=== PATIENT | male | born 1985 ===

== ENCOUNTER 2018-03-17 12:16 | Emergency (ER) | payer OTHER ==
[2018-03-17 12:27] VITALS: RESP 18; TEMP 98.8; BMI 42.3
--- NOTE | 2018-03-17 13:05 | ED PDOC ---
Arrival/HPI - General Chief Complaint: Back Pain Time Seen by Provider: 03/17/18 12:36 Historian: Patient - History of Present Illness Narrative History of Present Illness (Text): 03/17/18 33 yo male w/o significant PMHx come in for evaluation of Left sided lower back pain radiating down to Left thigh and lower leg gradually developed for past 2 months. Pt reports, pain is intermittent, worse for past week. Describes pain as aching, worse with movement. Admits , similar sx in past. Also request evaluation of cold sx associated with nasal congestion, dry cough for past few days. Otherwise, pt denies high fever, chills, headache, dizziness, drooling, dysphagia, dyspnea, CP, SOB, wheezing, abd. pain, N/V/D, UTI sx, saddle anesthesia, incontinence, denies weakness, sensory or vascular deficits to left leg, denies Left calf pain. Ambulate to ED for evaluation, not in any apparent distress. Past Medical History - Provider Review Nursing Documentation Reviewed: Yes - Travel History Have you recently traveled outside [place] w/in the past 3 mons?: No - Past History Past History: No Previous - Infectious Disease Hx of Infectious Diseases: None - Tetanus Immunization Tetanus Immunization: Unknown - Psychiatric Hx Substance Use: No - Anesthesia Hx Anesthesia: No Family/Social History - Physician Review Nursing Documentation Reviewed: Yes Family/Social History: No Known Family HX Smoking Status: Never Smoked Hx Alcohol Use: No Hx Substance Use: No Allergies/Home Meds Allergies/Adverse Reactions: Allergies dexamethasone [From Decadron] Allergy (Intermediate, Verified 12/17/17 10:31) ITCHING Home Medications: Home Meds Medication Instructions Recorded Confirmed Theraflu Expressmax Day Caplet 1 cap PO PRN PRN 12/17/17 12/17/17 Review of Systems - Physician Review All systems were reviewed & negative as marked: Yes - Review of Systems Constitutional: Normal. absent: Fevers Eyes: Normal ENT: Other (nasal congestion) Respiratory: Cough. absent: SOB, Sputum, Wheezing Cardiovascular: Normal. absent: Chest Pain, Palpitations Gastrointestinal: Normal. absent: Abdominal Pain, Diarrhea, Vomiting Genitourinary Male: Normal. absent: Dysuria, Frequency Musculoskeletal: Back Pain Skin: Normal. absent: Rash Neurological: Normal. absent: Headache, Focal Weakness Endocrine: Normal Hemo/Lymphatic: Normal Psychiatric: Normal Physical Exam Vital Signs Reviewed: Yes Vital Signs Temp Pulse Resp BP Pulse Ox 03/17/18 14:06 89 18 142/79 97 03/17/18 12:25 98.8 F 101 H 18 159/96 H 95 Temperature: Afebrile Blood Pressure: Normal Pulse: Regular Respiratory Rate: Normal Appearance: Positive for: Well-Appearing, Non-Toxic, Comfortable Pain Distress: None Mental Status: Positive for: Alert and Oriented X 3 - Systems Exam Head: Present: Normocephalic Conjunctiva: Present: Normal Mouth: Present: Moist Mucous Membranes Neck: Present: Normal Range of Motion, Trachea Midline. No: MIDLINE TENDERNESS , Paraspinal Tenderness Respiratory/Chest: Present: Clear to Auscultation, Good Air Exchange. No: Respiratory Distress, Accessory Muscle Use Cardiovascular: Present: Regular Rate and Rhythm, Normal S1, S2. No: Murmurs Abdomen: No: Tenderness, Distention, Peritoneal Signs, Rebound, Guarding Back: No: CVA Tenderness Upper Extremity: Present: Normal ROM. No: Edema Lower Extremity: Present: NORMAL PULSES, Normal ROM. No: Edema, CALF TENDERNESS , Swelling, Deformity Neurological: Present: GCS=15, Speech Normal Skin: Present: Warm, Dry, Normal Color. No: Rashes Psychiatric: Present: Alert, Oriented x 3, Normal Insight, Normal Concentration Medical Decision Making ED Course and Treatment: 03/17/18 13:05 On re-evaluation, pt is afebrile, hemodynamicaly stable. Non-toxic, ambulatory in ED with stable gait. PulseOx 95% rA ENT: no acute findings neck: Supple, (-) JVD Lungs: CTA B/L, BS equal B/L CVS: (+)S1S2, reg. Abd: benign. Neurological intact. L-spine xray review and appeas normal. Pt has clinical findings c/w lumbar radiculopathy, left. Upper respiratory infection. Pt advised. ref. to f/u with PMD in 2 days for re-evaluation. return to ED if any worsening or new changes. - RAD Interpretation Radiology Orders: 03/17/18 12:37 LS SPINE AP/LAT [RAD] Stat (-) acute fx or sublux - Medication Orders Current Medication Orders: Discontinued Medications Ibuprofen (Motrin Tab) 600 mg PO STAT STA Stop: 03/17/18 12:38 Last Admin: 03/17/18 12:49 Dose: 600 mg MAR Pain/Vitals Document 03/17/18 12:49 EQ (Rec: 03/17/18 12:49 EQ [id number]) Pain Reassessment Is This A Pain ReAssessment? No Sleep Is patient sleeping during reassessment? No Presence of Pain Presence of Pain Yes Disposition/Present on Arrival - Present on Arrival Any Indicators Present on Arrival: No History of DVT/PE: No History of Uncontrolled Diabetes: No Urinary Catheter: No History of Decub. Ulcer: No History Surgical Site Infection Following: None - Disposition Have Diagnosis and Disposition been Completed?: Yes Diagnosis: Lumbar radiculopathy, Upper respiratory infection Disposition: HOME/ ROUTINE Disposition Time: 13:40 Patient Plan: Discharge Condition: STABLE Discharge Instructions (ExitCare): Radiculopathy, Viral Upper Respiratory Infection, Adult (DC) Print Language: MACEDONIAN Additional Instructions: Fomente los lquidos Evite la actividad fsica richy 1-2 semanas, evite inclinarse hacia adelante, levantar objetos pesados richy 1-2 semanas Sedan la medicacin segn lo prescrito Marisela un seguimiento con PMD en 2-3 richardson para ac nueva evaluacin. regresar a ED si hay un empeoramiento o cambios nuevos. Prescriptions: Benzonatate [Tessalon Perle] 100 mg PO TID #14 capsule Gabapentin [Neurontin] 300 mg PO HS #10 cap Ibuprofen [Motrin Tab] 600 mg PO TID #20 tab Methocarbamol [Robaxin] 500 mg PO TID #14 tab Forms: [employer] (Setswana)
--- NOTE | 2018-03-17 14:05 | RAD ---
Date of service: 03/17/2018 PROCEDURE: Radiographs of the Lumbar Spine. HISTORY: pain COMPARISON: No prior. FINDINGS: BONES: Normal alignment. No listhesis. No fracture. DISC SPACES: Disc degeneration at L5-S1 OTHER FINDINGS: None. IMPRESSION: Disc degeneration at L5-S1
[2018-03-17 14:08] VITALS: BP 142/79; PULSE 89; O2SAT 97
== END 2018-03-17 14:05 | disposition home or self-care (01) ==
LOC: MERGE 12:16 → ED 12:16
DX: J06.9 Acute upper respiratory infection, unspecified (principal); M54.16 Radiculopathy, lumbar region